=== PATIENT | female | born 1995 | race Caucasian/White ===

== ENCOUNTER 2016-11-17 00:52 | Inpatient (IN) ==
[2016-11-17] MEDS ORDERED: ZOFRAN IV PRN (04:00)
[2016-11-17] MEDS ORDERED: MORPHINE IV ONE (04:08)
[2016-11-17] MEDS ORDERED: SODIUM CHLORIDE 0.9% INJ SCH (04:15)
[2016-11-17] MEDS: NS 1,000 ML IV SCH ×2 (04:35→13:58)
[2016-11-17 06:08] LABS: BASO% 0.2 % (0.0-0.8); HEMATOCRIT 35.7 % (37.0-47.0); HEMOGLOBIN 11.6 g/dL (12.0-16.0); LYMPH# 0.17 X1000 (1.2-3.4); LYMPH% 1.9 % (20.5-51.1); MANUAL DIFF NEEDED? YES; MCH 28.2 PG (27-31); MCHC 32.5 g/dL (33-37); MCV 86.7 FL (81-99); MONO# 0.08 X1000 (0.11-0.59); MONO% 0.9 % (1.7-9.3); MPV 9.9 FL (7.4-10.4); PLT 318 X1000 (130-400); RBC 4.12 XMIL (4.2-5.4)
[2016-11-17] MEDS: PROTONIX IV SCH (06:11)
[2016-11-17] MEDS: CIPRO 400 MG/D5W 400 MG/200 ML IVPB IV SCH ×2 (06:11→17:06)
[2016-11-17 06:29] LABS: LYMPHS 2 % (21-51)
[2016-11-17 07:45] LABS: AGAP 18; ALBUMIN 3.7 g/dL (3.5-5.0); ALKALINE PHOSPHATASE 84 U/L (32-104); BUN 12 mg/dL (8-22); CALCIUM 9.4 mg/dL (8.8-10.2); CHLORIDE 100 mmol/L (98-107); COSMO 278; GOT 15 U/L (10-30); GPT 8 U/L (10-36); POTASSIUM 4.2 mmol/L (3.5-5.1); SODIUM 138 mmol/L (136-145); TCO2 20 mmol/L (25-35); TOTAL BILIRUBIN 0.43 mg/dL (0.20-1.00); TOTAL PROTEIN 7.7 g/dL (6.3-8.3)
[2016-11-17] MEDS: FLAGYL 500 MG/NS 500 MG/100 ML IVPB IV SCH ×2 (08:28→17:04)
[2016-11-17] MEDS: MORPHINE IV PRN ×4 (09:23→22:57)
[2016-11-17] MEDS: SOLU-MEDROL IV SCH (14:02)
[2016-11-18] MEDS: FLAGYL 500 MG/NS 500 MG/100 ML IVPB IV SCH ×2 (00:57→09:01)
[2016-11-18] MEDS: SOLU-MEDROL IV SCH ×2 (00:57→12:14)
[2016-11-18] MEDS ORDERED: NS 1,000 ML IV ONE (05:22)
[2016-11-18] MEDS ORDERED: NS 1,000 ML IV SCH ×2 (05:23→13:29)
[2016-11-18] MEDS: PROTONIX IV SCH (05:40)
[2016-11-18] MEDS: CIPRO 400 MG/D5W 400 MG/200 ML IVPB IV SCH (05:52)
[2016-11-18 06:38] VITALS: BP 93/60
[2016-11-18 07:12] LABS: MANUAL DIFF NEEDED? NO
[2016-11-18 07:16] LABS: EOS# 0.02 X1000 (0.0-0.7); EOS% 0.5 % (0.0-10.0); HEMATOCRIT 33.5 % (37.0-47.0); HEMOGLOBIN 10.8 g/dL (12.0-16.0); LYMPH# 0.41 X1000 (1.2-3.4); LYMPH% 9.3 % (20.5-51.1); MCH 28.5 PG (27-31); MCHC 32.2 g/dL (33-37); MCV 88.4 FL (81-99); MONO# 0.44 X1000 (0.11-0.59); NEUT% 80.2 % (42.2-75.2); PLT 279 X1000 (130-400); RBC 3.79 XMIL (4.2-5.4)
[2016-11-18 07:33] LABS: AGAP 10; ALBUMIN 3.1 g/dL (3.5-5.0); ALKALINE PHOSPHATASE 71 U/L (32-104); BUN 7 mg/dL (8-22); CALCIUM 8.6 mg/dL (8.8-10.2); CHLORIDE 108 mmol/L (98-107); COSMO 281; GOT 11 U/L (10-30); GPT 6 U/L (10-36); MAGNESIUM 1.7 mg/dL (1.5-2.7); POTASSIUM 3.7 mmol/L (3.5-5.1); SODIUM 142 mmol/L (136-145); TCO2 24 mmol/L (25-35); TOTAL BILIRUBIN 0.24 mg/dL (0.20-1.00); TOTAL PROTEIN 6.2 g/dL (6.3-8.3)
[2016-11-18] MEDS: MORPHINE IV PRN ×2 (09:00→13:11)
== END 2016-11-18 15:31 | disposition home or self-care (01) ==
LOC: SUATTDRO 00:52 → 3N 00:52
PROVIDERS: ATTEND Internal Medicine